=== PATIENT | male | born 2000 | race Caucasian/White ===

== ENCOUNTER 2024-02-12 14:35 | Emergency (ER) | payer OTHER, SELFPAY ==
[2024-02-12 14:39] VITALS: BP 132/96; BMI 25.1
[2024-02-12 15:05] LABS: % Basophils 0.4 % (0-2); % Eosinophils 0.4 % (0-6); % Immature Granulocytes 0.3 % (0-0.5); % Lymphocytes 14.7 % (20.5-51.1); % Monocytes 5.6 % (1.7-9.3); % Neutrophils 78.6 % (42.2-75.2); Absolute Lymphocytes 1.2 10^3/uL (1.2-3.4); Absolute Monocytes 0.4 10^3/uL (0.1-0.6); Absolute Neutrophils 6.2 10^3/uL (1.4-6.5); Hematocrit 42.8 % (39.0-52.0); Hemoglobin 15.5 g/dL (13.0-18.0); Mean Corp Hgb Conc. 36.2 g/dL (33.0-37.0); Mean Corpuscular Hgb 31.4 pg (27.0-31.0); Mean Corpuscular Volume 86.6 fL (80.0-94.0); Mean Platelet Volume 9.6 fL (7.4-10.4); Nucleated Red Blood Cells % 0 % (-); Platelet Count 176 10^3/uL (130-400); Red Blood Cell Count 4.94 10^6/uL (4.70-6.10); Red Cell Dist. Width 11.6 % (11.5-14.5); White Blood Cell Count 7.9 10^3/uL (4.8-10.8)
[2024-02-12 15:10] LABS: INR 1.11; PT 14.1 Sec (11.4-14.6)
[2024-02-12 15:15] LABS: ALT (SGPT) 18 U/L (0-50); AST (SGOT) 24 U/L (17-59); Albumin 4.9 g/dl (3.5-5.0); Alkaline Phosphatase 57 U/L (38-126); Blood Urea Nitrogen 17 mg/dl (9-20); Calcium 9.8 mg/dl (8.4-10.2); Carbon Dioxide 26 mmol/L (22-30); Chloride 103 mmol/L (98-107); Estimated Creatinine Clearance > 125 ml/min; Glucose 99 mg/dl (70-99); Potassium 3.9 mmol/L (3.5-5.1); Sodium 137 mmol/L (135-145); Total Bilirubin 0.9 mg/dl (0.2-1.3); Total Protein 7.3 g/dl (6.3-8.2); eGFR > 60.00
[2024-02-12 15:27] LABS: Troponin I < 0.012 ng/ml
[2024-02-12 15:30] VITALS: BP 121/90
--- NOTE | 2024-02-12 16:03 | ED.GENMED ---
History of Present Illness
General
Chief Complaint: Cardiac Symptoms
Source: patient
Exam Limitations: none
Time Seen by Provider: 02/12/24 15:48
Travel History
Have you had any contact with someone who has COVID-19?: No
Do you have any symptoms of coronavirus? Fever > 100 degrees, chills, cough, shortness of breath, sore throat, loss of taste or smell, muscle aches, or headache?: No
History of Present Illness
History of Present Illness:
24-year-old male otherwise healthy presents complaining of a weeks worth of occasional palpitations and shortness of breath that started after snorting cocaine 1 week ago. Since snorting the cocaine 1 week ago he has not used again. Does admit to
drinking some alcohol and caffeine between now and then. Currently he states he has no palpitations or shortness of breath he has not had any 2 days but wanted to get checked. No recent travel or surgery. No other complaints at this time
Past History
Past History
ED Past Medical History: Other (bipolar, anxiety); Negative Asthma, HTN, Hypercholesterolemia or NIDDM
ED Past Surgical History: None
Social History
Tobacco: Smoker
Alcohol: Occasional
Drug: None
Personal: Single
Living: with roommate
Phy Exam
Physical Exam
Physical Exam:
General: Well-appearing male no acute respiratory distress
HEENT: Normocephalic atraumatic
Heart: Regular rate and rhythm no murmurs
Lungs: Clear no wheeze or rales
Extremities: No cyanosis or edema
Abdomen soft nontender nondistended no guarding or rebound
Course
Orders/Labs/Results
Orders:
Orders
02/12/24 14:38
EKG [Electrocardiogram (*1)] Urgent
Reason for Study: Tachycardia
EKG- Treatment ONCE
02/12/24 14:54
Complete Blood Count/With Diff Urgent
Comprehensive Metabolic Panel Urgent
Prothrombin Time Urgent
Troponin I Urgent
Abnormal Lab Results
02/12/24
14:54
MCH 31.4 H pg
(27.0-31.0)
Neutrophils % 78.6 H %
(42.2-75.2)
Lymphocytes % 14.7 L %
(20.5-51.1)
02/12/24 14:54
02/12/24 14:54
Vital Signs
Initial and Last Documented VS:
Initial Vital Signs
Temp Pulse Resp BP Pulse Ox
98.6 F 122 18 132/96 98
02/12/24 14:39 02/12/24 14:39 02/12/24 14:39 02/12/24 14:39 02/12/24 14:39
Last Documented Vital Signs
Temp Pulse Resp BP Pulse Ox
98.6 F 80 22 121/90 98
02/12/24 14:39 02/12/24 16:30 02/12/24 16:30 02/12/24 15:30 02/12/24 14:39
MDM/Problems Addressed
Differential Diagnosis Includes:
Patient with palpitations shortness of breath since using cocaine 1 week ago. He has not had any symptoms in 2 days. EKG shows sinus tachycardia with a rate of 104. When I was in the room he had a heart rate in the 90s on the monitor. No
arrhythmias. Troponin is undetectable. Electrolytes within normal limits. Suspect palpitations may be related to substance abuse. No recent travel or risk factors for PE.
*Critical Care Note
Total Time (30-74mins, 75-104mins- exclusive of procedures): Not Applicable
Update Note
Update Note:
Labs reviewed patient does not have any arrhythmias on monitor. He is resting comfortably. Symptoms been going on for a week. Do not suspect any intermittent cardiac or pulmonary issues. Stable for discharge. Recommended refraining from cocaine
use
ED Attending Note
-
Portions of this chart may have been created with voice recognition software.� Occasional wrong word or��sound alike� substitutions may have occurred due to the inherent limitations of voice recognition software.
Discharge Plan
Departure
Patient Disposition: Home (Routine Discharge)
Date of Disposition: 02/12/24
Time of Disposition: 16:43
Patient with high blood pressure during this ER visit?: No
Discharge Problem:
palpitations, Substance abuse
Instructions: Palpitations
Prescriptions:
No Action
cephalexin 25 MG/ML suspension for reconstitution
125 mg PO QID Qty: 300 0RF
Rx Instructions:
250 qid x 7 days
oxycodone 5 mg tablet
5 mg PO Q4H PRN (Reason: Pain) Qty: 14 0RF
Referrals:
Johnathan Akhtar MD [Family Provider] -
Activity Restrictions/Additional Instructions:
Stay hydrated. Return for worsening symptoms. Follow-up with family doctor. Refrain from cocaine use
Interventions
Interventions:
*Risk Screen - Suicide Last Done: 02/12/24 14:39
*Neglect/Abuse Screening Last Done: 02/12/24 14:39
ED- Fall Risk Assessment Last Done: 02/12/24 14:39
Discharge Date and Time
Print Language: [place]ET[place]ESE
== END 2024-02-12 17:20 | disposition home or self-care (01) ==
LOC: EMR 14:35
PROVIDERS: Emergency Medicine; EMERGENCY PHYSICIAN Emergency Medicine; FAMILY PHYSICIAN Family Medicine
DX: R00.2 Palpitations (principal); R06.02 Shortness of breath; R00.0 Tachycardia, unspecified; F14.10 Cocaine abuse, uncomplicated; F31.9 Bipolar disorder, unspecified; F41.9 Anxiety disorder, unspecified; F17.200 Nicotine dependence, unspecified, uncomplicated; Z88.1 Allergy status to other antibiotic agents
CPT/HCPCS: 99283; 80053; 84484; 85025; 85610; 93005

== ENCOUNTER 2024-04-27 17:16 | Emergency (ER) | payer OTHER, SELFPAY ==
[2024-04-27 17:22] VITALS: BP 152/82
--- NOTE | 2024-04-27 18:47 | ED.GENMED ---
History of Present Illness
General
Chief Complaint: Chest Pain
Source: patient
Exam Limitations: none
Time Seen by Provider: 04/27/24 18:15
History of Present Illness
History of Present Illness:
This is a 24 year old male that comes in with c/o palpitations. States that he was here 3 months ago as he had done Cocaine. States that a week after this he was ok and then he started with palpitations. States that he feels uneasy and when he lays
down at night he feels this funny feeling in his chest. States that his chest pain has increased the past few days. States that he has felt SOB had diarrhea and urinary burning. Denies any fever, chills, abd pain, nausea, vomiting, headache,
dizziness.
Past History
Past History
ED Past Medical History: Psychiatric (Anxiety, Bipolar, Depression. Schizophrenia, ) and Other (bipolar, anxiety); Negative Asthma, HTN, Hypercholesterolemia or NIDDM
ED Past Surgical History: None
Social History
Tobacco: Smoker ( and Vaps)
Alcohol: Occasional
Drug: None
Personal: Single
Living: with roommate
Review of Systems
Review of Systems
All Other Systems: ROS reviewed and negative except as documented in HPI and ROS
Constitutional: Reports no symptoms; Denies fever or chills
EENT: Reports no symptoms
Respiratory: Reports trouble breathing
Cardiac: Reports chest pain and palpitations
ABD/GI: Reports diarrhea; Denies abdominal pain, nausea or vomiting
: Reports no symptoms; Denies dysuria, frequency or urgency
Musculoskeletal: Reports no symptoms
Skin: Reports no symptoms
Neurological: Reports no symptoms; Denies dizzy or headache
Psychiatric: Reports no symptoms
Phy Exam
General Physical Exam
General Presentation: well appearing and no apparent distress
General age: appears stated age
General Skin: warm and dry
General Habitus: normal
General Mental: alert
General Hydration: dry mucous membranes
ENT Exam
ENT Exam: TM's normal, pharynx normal and neck supple
Eye Exam
Eye Exam: EOMI
Cardiovascular Exam
Cardiovascular Exam: regular rate/rhythm, no edema, no murmur and normal peripheral pulses
Pulmonary Exam
Pulmonary Exam: lungs clear, no respiratory distress, no rales, chest non tender, no crackles, no rhonchi, no wheezing and no cough
Gastrointestinal Exam
Gastrointestinal Exam: normal bowel sounds, non tender, soft, no organomegaly, no pulsatile mass and non distended
Musculoskeletal Exam
Musculoskeletal Exam: full ROM and no edema
Skin Exam
Skin Exam: normal color, warm/dry, no rash and no petechia
Scores
Heart Score for Chest Pain Patients
STEMI patient?: No
History: Slightly or Non-Suspicious
ECG: Normal
Age: </= 45 years
Risk Factors: No Risk Factors
Troponin: </= Normal Limit
Heart Score for Chest Pain Patients: 0
Heart Score Risk: 2.5% MACE over next 6 weeks
Course
Orders/Labs/Results
Orders:
Orders
04/27/24 17:17
EKG [Electrocardiogram (*1)] Urgent
Reason for Study: Chest Pain
04/27/24 17:18
EKG- Treatment ONCE
04/27/24 18:40
CR Chest - 2 Views Urgent
Comment:
Reason For Exam: Chest pain, SOB
04/27/24 19:54
Complete Blood Count/With Diff Urgent
Comprehensive Metabolic Panel Urgent
D-Dimer Urgent
Troponin I Urgent
04/27/24 20:46
Fentanyl, Urine Urgent
Urinalysis Reflex To Culture Urgent
Date Specimen was Collected: 04/27/24
Time Specimen was Collected: 20:30
Urine Drug Abuse Screen Urgent
Date Specimen was Collected: 04/27/24
Time Specimen was Collected: 20:30
Abnormal Lab Results
04/27/24 04/27/24
19:54 20:46
MCH 31.2 H pg
(27.0-31.0)
MCHC 37.5 H g/dL
(33.0-37.0)
Lymphocytes % 18.0 L %
(20.5-51.1)
Albumin 5.1 H g/dl
(3.5-5.0)
U Benzodiazepines Scrn Positive H
(Negative)
04/27/24 19:54
04/27/24 19:54
Labs unremarkable. Troponin 0.015, D-dimer 0.27, Urine negative for infection. Urine Drug Benzodiazepines
Vital Signs
Initial and Last Documented VS:
Initial Vital Signs
Temp Pulse BP Pulse Ox
98.5 F 104 152/82 96
04/27/24 17:22 04/27/24 17:22 04/27/24 17:22 04/27/24 17:22
Last Documented Vital Signs
Temp Pulse Resp BP Pulse Ox
98.5 F 104 18 152/82 96
04/27/24 17:22 04/27/24 19:15 04/27/24 19:15 04/27/24 17:22 04/27/24 17:22
MDM/Problems Addressed
Differential Diagnosis Includes:
Anxiety,
MDM/Problems Addressed:
This is a 24 year old male that comes in with c/o palpitations and chest pain. States that he is SOB and feels that he has a blood clot.
Will check labs, Chest x-ray and get urine.
Back into see patient. Explained that his blood work is normal along with his chest x-ray. Feels that this is all related to his anxiety. Patient to follow up with the family doctor. return with any concerns.
Chronic conditions affecting care: Psychiatric illness
Acute Exacerbation and/or Progression of Chronic Illness: Psychiatric illness
*Pulse Oximetry
Patient hypoxic: no
*EKG
Interpreted by ED Provider?: Yes
Heart Rate: 93
Rate: normal
Rhythm: sinus
[place]: left axis deviation
Interval: normal interval
QRS Pattern: normal QRS
Ischemia: no ischemia
*Lift Builder Whole Interpretation
Rate: normal
Heart Rate: 95
Rhythm: sinus
*Critical Care Note
Total Time (30-74mins, 75-104mins- exclusive of procedures): Not Applicable
ED Attending Note
-
Portions of this chart may have been created with voice recognition software.� Occasional wrong word or��sound alike� substitutions may have occurred due to the inherent limitations of voice recognition software.
Discharge Plan
Departure
Patient Disposition: Home (Routine Discharge)
Date of Disposition: 04/27/24
Time of Disposition: 21:19
Patient with high blood pressure during this ER visit?: Yes
Condition: Good
Covid-19: Not Applicable
Discharge Problem:
Anxiety
Instructions: Generalized Anxiety Disorder (DC), BLOOD PRESSURE
Prescriptions:
No Action
cephalexin 25 MG/ML suspension for reconstitution
125 mg PO QID Qty: 300 0RF
Rx Instructions:
250 qid x 7 days
oxycodone 5 mg tablet
5 mg PO Q4H PRN (Reason: Pain) Qty: 14 0RF
Referrals:
Johnathan Akhtar MD [Family Provider] - As needed
Activity Restrictions/Additional Instructions:
As discussed,your blood work is normal along with your chest X-ray. This is most likely due to your anxiety. Please follow up with your family doctor or your Psychiatrist for further evaluation. IF YOU HAVE ANY OTHER CONCERNS PLEASE RETURN TO THE
EMERGENCY ROOM.
Interventions
Interventions:
*Risk Screen - Suicide Last Done: 04/27/24 17:25
*General Assessment Last Done: 04/27/24 17:25
*Neglect/Abuse Screening Last Done: 04/27/24 17:25
ED- Cardiac Assessment Last Done: 04/27/24 20:37
Discharge Date and Time
Print Language: [place]OREAN
[2024-04-27 20:02] LABS: % Basophils 0.5 % (0-2); % Eosinophils 0.6 % (0-6); % Immature Granulocytes 0.3 % (0-0.5); % Monocytes 7.6 % (1.7-9.3); Absolute Eosinophils 0.1 10^3/uL (0-0.7); Absolute Lymphocytes 1.4 10^3/uL (1.2-3.4); Absolute Monocytes 0.6 10^3/uL (0.1-0.6); Absolute Neutrophils 5.7 10^3/uL (1.4-6.5); Hematocrit 42.1 % (39.0-52.0); Hemoglobin 15.8 g/dL (13.0-18.0); Mean Corp Hgb Conc. 37.5 g/dL (33.0-37.0); Mean Corpuscular Hgb 31.2 pg (27.0-31.0); Mean Corpuscular Volume 83.2 fL (80.0-94.0); Mean Platelet Volume 9.8 fL (7.4-10.4); Nucleated Red Blood Cells % 0 % (-); Platelet Count 207 10^3/uL (130-400); Red Blood Cell Count 5.06 10^6/uL (4.70-6.10); Red Cell Dist. Width 11.9 % (11.5-14.5); White Blood Cell Count 7.8 10^3/uL (4.8-10.8)
[2024-04-27 20:15] LABS: ALT (SGPT) 18 U/L (0-50); AST (SGOT) 24 U/L (17-59); Albumin 5.1 g/dl (3.5-5.0); Alkaline Phosphatase 80 U/L (38-126); Blood Urea Nitrogen 11 mg/dl (9-20); Calcium 9.9 mg/dl (8.4-10.2); Carbon Dioxide 24 mmol/L (22-30); Chloride 100 mmol/L (98-107); Glucose 94 mg/dl (70-99); Potassium 3.8 mmol/L (3.5-5.1); Sodium 135 mmol/L (135-145); Total Bilirubin 0.9 mg/dl (0.2-1.3); Total Protein 7.1 g/dl (6.3-8.2); eGFR > 60.00
[2024-04-27 20:20] LABS: D-Dimer < 0.27 ug/mlFEU (0.00-0.50)
[2024-04-27 20:27] LABS: Troponin I 0.015 ng/ml
[2024-04-27 21:03] LABS: Urine Albumin Negative (Neg - Trace); Urine Bilirubin Negative (Negative); Urine Character Clear (Clear); Urine Color Yellow; Urine Glucose Negative (Negative); Urine Ketone Negative (Negative); Urine Leukocyte Negative (Negative); Urine Nitrite Negative (Negative); Urine Occult Blood Negative (Negative); Urine Urobilinogen Negative (Neg - 1+)
[2024-04-27 21:14] LABS: Amphetamines Negative (Negative); Barbiturates Negative (Negative); Benzodiazepines Positive (Negative); Buprenorphine Negative (Negative); Cocaine Negative (Negative); Marijuana Negative (Negative); Methadone Negative (Negative); Methamphetamines Negative (Negative); Opiates Negative (Negative); Phencyclidine Negative (Negative); Tricyclic Antidepressants Negative (Negative)
[2024-04-27 21:18] VITALS: BP 136/76
[2024-04-27 21:41] LABS: Fentanyl, Urine Negative (Negative)
== END 2024-04-27 21:23 | disposition home or self-care (01) ==
LOC: EMR 17:16
PROVIDERS: Clinical Nurse Specialist Family Health; EMERGENCY PHYSICIAN Emergency Medicine; FAMILY PHYSICIAN Family Medicine
DX: F41.9 Anxiety disorder, unspecified (principal); F17.290 Nicotine dependence, other tobacco product, uncomplicated; R03.0 Elevated blood-pressure reading, without diagnosis of hypertension; F20.9 Schizophrenia, unspecified; F31.9 Bipolar disorder, unspecified
CPT/HCPCS: 99285; 71046; 80053; 80306; 80307; 81003; 84484; 85025; 85379; 93005

== ENCOUNTER 2025-06-04 17:33 | Emergency (ER) | payer OTHER, SELFPAY ==
[2025-06-04 17:39] VITALS: BP 139/92
[2025-06-04 17:42] VITALS: BMI 26.1
[2025-06-04 17:47] LABS: Hematocrit 45.4 % (39.0-52.0); Hemoglobin 16.4 g/dL (13.0-18.0); Mean Corp Hgb Conc. 36.1 g/dL (33.0-37.0); Mean Corpuscular Volume 83.6 fL (80.0-94.0); Nucleated Red Blood Cells % 0 % (-); Platelet Count 233 10^3/uL (130-400); Red Cell Dist. Width 12.8 % (11.5-14.5)
--- NOTE | 2025-06-04 18:05 | ED.GENMED ---
History of Present Illness
General
Chief Complaint: Overdose Unintentional
Time Seen by Provider: 06/04/25 18:04
History of Present Illness
History of Present Illness:
FOCUSED PAST MEDICAL HISTORY
- Bipolar, schizophrenia, substance abuse
REVIEW OF OLD RECORDS
- The patient was seen here with anxiety in April 2024 and substance abuse in February 2024
Note:
CHIEF COMPLAINT(S)
Cocaine use and psychiatric evaluation.
HISTORY OF PRESENT ILLNESS
The patient is a 25-year-old male who presented for evaluation following cocaine use. The patient admits to using cocaine earlier in the day, approximately three hours prior to the current evaluation, and reported usage on the previous day as well.
Cocaine use has been sporadic, with periods of abstinence and increased frequency up to two times a week. When asked about the reason for cocaine use, the patient mentioned experiencing 'a lot of happiness' and using it to cope with 'bad depression.'
The patient has a reported history of social anxiety disorder and bipolar disorder, though no definitive diagnosis has been established. Currently, he is undergoing treatment for these conditions, but he has not taken his antipsychotic medications
today. The patient usually takes his medication at dinner, along with food. A family member confirmed that he typically adheres to this regimen.
Further, the patient reported feelings of unease and concern about his heart rate being 'pretty fast.' Recent episodes of bizarre behavior, as noted by family, have been linked to the patients drug use. Concerns about the interplay between
psychiatric symptoms and substance use have complicated his evaluation, and a family member expressed the belief that mental health issues precede drug use.
PSYCHIATRIC HISTORY
The patient has been treated for social anxiety disorder and bipolar disorder. Current medications include Paliperidone 112.5 mg and venlafaxine. The patient�s private psychiatrist has trialed multiple medications over the past four years. According
to a family member, a mental health crisis was first identified in 2020 when the patient exhibited concerning behavior while at school.
ADDITIONAL HISTORY OBTAINED FROM SOURCES OTHER THAN THE PATIENT
According to a family member, the patient has shown recent behavior changes, including restlessness and agitation, prompting a mobile crisis unit evaluation. The family has expressed that the mental health issues were evident prior to cocaine use.
CHRONIC MEDICAL CONDITIONS SIGNIFICANTLY AFFECTING CARE
- Social anxiety disorder
- Bipolar disorder
SOCIAL DETERMINANTS AFFECTING HEALTH
The patient reported limited alcohol use, consuming about one drink per week, and denied using any other illicit substances besides cocaine. The family has noted financial and logistical challenges in obtaining consistent psychiatric support.
PHYSICAL EXAM
General: Alert, no acute distress. Appears comfortable
Skin: Warm, dry.
Head: Normocephalic, atraumatic.
Neck: Supple, trachea midline.
Eye Ears, Nose, Mouth, and Throat: Oral mucosa moist.
Cardiovascular: Normal peripheral perfusion, No edema. Tachycardic
Respiratory: Respirations are non-labored.
Gastrointestinal: Abdomen nondistended
Back: Normal range of motion, Normal alignment.
Musculoskeletal: Normal range of motion, normal strength.
Neurological: Awake and alert, moving all extremities equally
Psychiatric: The patient has somewhat of a bizarre affect, somewhat of a limited historian
PROBLEM LIST
Acute:
- Cocaine use
- Tachycardia
Chronic:
- Social anxiety disorder
- Bipolar disorder
PLAN
- Considered having him take his usual paliperidone 112.5 mg however mother states this has been an effective
- Valium 10 mg IV now
- Monitor cardiovascular status, particularly heart rate, due to cocaine use.
- Discuss potential changes to psychiatric medication with patient�s psychiatrist given current inefficacy reported by the patient and family.
- Crisis evaluation
DIFFERENTIAL DIAGNOSIS
The Differential Diagnosis includes, in no particular order and is not limited to:
- Acute cocaine intoxication
- Substance-induced mood disorder
- Bipolar disorder
- Anxiety disorder
- Tachycardia secondary to stimulant use
- Panic disorder
- Depression
- Substance abuse disorder
- Schizophreniform disorder
- Adjustment disorder
EKG
- Sinus 120, rightward axis deviation, nonspecific ST abnormality
LABS
- UDS positive for cocaine, negative alcohol, chemistries relatively unremarkable, white count 16.9 that I suspect is reactive related to recent cocaine use
UPDATE
-SUMMARY OF ENCOUNTER
The patient, a 25-year-old male, presented to the emergency department with a heart rate elevated due to cocaine use earlier in the day. The patient reported feeling 'really good,' attributing it to medication given to counteract cocaines effects.
The family initiated a petition for an involuntary hold, which was denied, leaving the hospital unable to hold the patient involuntarily. Despite improvement, the patient was advised not to drive and to secure transportation home due to safety
concerns.
DISPOSITION
Discharge
ASSESSMENT
Cocaine use with tachycardia managed with medication to reduce heart rate. Cognitive function appeared adequate by the end of the visit, and no further mental health interventions were deemed necessary at this time.
EMERGENCY TREATMENTS ADMINISTERED
Medication administered to counteract cocaine effects and reduce tachycardia.
PLAN
Advise the patient to find someone to drive him home due to unresolved risk factors related to earlier cocaine use and its cardiovascular implications. Reiterate safety concerns and instruct on securing reliable transportation before leaving the
facility.
MEDICATION RECONCILIATION
Medication administered to manage elevated heart rate secondary to cocaine use was the sole intervention in the ER setting.
MEDICAL DECISION MAKING
1. Number and Complexity of Problems Addressed:
Chronic conditions affecting care include social anxiety disorder and bipolar disorder. Differential diagnosis includes acute cocaine intoxication, substance-induced mood disorder, bipolar disorder, anxiety disorder, tachycardia secondary to
stimulant use, panic disorder, depression, substance abuse disorder, schizophreniform disorder, and adjustment disorder.
2. Data:
Category 1: The patient was monitored for tachycardia secondary to cocaine use, but no labs or imaging were recorded during this transcript.
Category 2: Information was corroborated by a family member regarding the denial of a 302 hold; however, further independent historical data were not detailed in the transcript.
Category 3: There was no discussion with other healthcare professionals documented.
3. Risk: Medication for tachycardia was administered, indicating management of acute toxicity. Social determinants included transportation challenges, impacting discharge safety.
Heart rate improved to about 100 prior to discharge
302 denied by the delegate
The patient later asked for a CAT scan of his chest 'because I vape a lot' however his lungs were clear and his oxygen sats are normal
DIAGNOSIS
F14.10 Cocaine use, unspecified with complications including acute tachycardia.
Past History
Past History
ED Past Medical History: Psychiatric (Anxiety, Bipolar, Depression. Schizophrenia, ) and Other (bipolar, anxiety); Negative Asthma, HTN, Hypercholesterolemia or NIDDM
ED Past Surgical History: None
Social History
Tobacco: Smoker ( and Vaps)
Alcohol: Occasional
Drug: None
Personal: Single
Living: with roommate
Phy Exam
Physical Exam
Physical Exam:
See HPI
Course
Orders/Labs/Results
Orders:
Orders
06/04/25 17:37
EKG [Electrocardiogram (*1)] Urgent
Reason for Study: Tachycardia
EKG- Treatment ONCE
06/04/25 17:38
Alcohol Urgent
Complete Blood Count/With Diff Urgent
Comprehensive Metabolic Panel Urgent
Creatine Phosphokinase Urgent
Comment: ADDON
Fentanyl, Urine Urgent
Urine Drug Abuse Screen Urgent
Date Specimen was Collected: 06/04/25
Time Specimen was Collected: 17:37
06/04/25 18:04
Add On- LAB Urgent
Tests Added?: CK
0.9% Sodium Chloride 1000 ml [Nss] 1,000 ml IV BOLUS
diazePAM [Valium Injection] 10 mg IV NOW STA
06/04/25 18:21
Nicotine [Nicoderm Transdermal] 21 mg TRANSDERM NOW STA
06/04/25 19:06
Crisis Consult Urgent
Reason for Consult: behavioral health eval; cocaine use
Abnormal Lab Results
06/04/25
17:38
WBC 16.9 H 10^3/uL
(4.8-10.8)
Abs Immat Gran (auto) 0.1 H 10^3/uL
(0-0.05)
Absolute Neuts (auto) 14.2 H 10^3/uL
(1.4-6.5)
Absolute Lymphs (auto) 1.0 L 10^3/uL
(1.2-3.4)
Absolute Monos (auto) 1.4 H 10^3/uL
(0.1-0.6)
Neutrophils % 84.4 H %
(42.2-75.2)
Lymphocytes % 6.0 L %
(20.5-51.1)
BUN 8 L mg/dl
(9-20)
Glucose 100 H mg/dl
(70-99)
Calcium 10.5 H mg/dl
(8.4-10.2)
Total Bilirubin 1.4 H mg/dl
(0.2-1.3)
Creatine Kinase 352 H U/L
(55-170)
Albumin 5.2 H g/dl
(3.5-5.0)
Urine Cocaine Screen Positive H
(Negative)
06/04/25 17:38
06/04/25 17:38
Vital Signs
Initial and Last Documented VS:
Initial Vital Signs
Pulse Resp BP Pulse Ox
122 22 139/92 98
06/04/25 17:39 06/04/25 17:39 06/04/25 17:39 06/04/25 17:39
Last Documented Vital Signs
Temp Pulse Resp BP Pulse Ox
36.8 C 100 26 117/55 96
06/04/25 17:42 06/04/25 20:15 06/04/25 20:15 06/04/25 20:00 06/04/25 20:15
*Pulse Oximetry
SaO2: 97
Oxygen Mode of Delivery: Room air
Patient hypoxic: no
*Critical Care Note
Total Time (30-74mins, 75-104mins- exclusive of procedures): Not Applicable
ED Attending Note
-
Portions of this chart may have been created with voice recognition software.� Occasional wrong word or��sound alike� substitutions may have occurred due to the inherent limitations of voice recognition software.
Discharge Plan
Departure
Patient Disposition: Home (Routine Discharge)
Date of Disposition: 06/04/25
Time of Disposition: 19:28
Patient with high blood pressure during this ER visit?: Yes
Discharge Problem:
Cocaine use
Instructions: Substance use disorder
Prescriptions:
No Action
cephalexin 25 MG/ML suspension for reconstitution
125 mg PO QID Qty: 300 0RF
Rx Instructions:
250 qid x 7 days
oxycodone 5 mg tablet
5 mg PO Q4H PRN (Reason: Pain) Qty: 14 0RF
Referrals:
Johnathan Akhtar MD [Family Provider, Family Practice]
Activity Restrictions/Additional Instructions:
I strongly recommend stopping all cocaine use. Your heart rate was fast when you first came in we gave you medicine to counteract those effects. Because of this medicine that we gave you, you must not drive tonight and you should find a ride home.
We did have crisis evaluate you as well but they could not place you at a facility as the '302 was denied'. Return here if worse or other concerns.
Interventions
Interventions:
*Risk Screen - Suicide Last Done: 06/04/25 17:41
*General Assessment Last Done: 06/04/25 17:41
*Neglect/Abuse Screening Last Done: 06/04/25 17:41
*ED- Fall Risk Assessment Last Done: 06/04/25 17:41
*ED COVID-19 Vaccine History Last Done: 06/04/25 17:41
*Nursing Disposition Last Done: 06/04/25 20:39
ED- Cardiac Assessment Last Done: 06/04/25 17:43
ED- Neurological Assessment Last Done: 06/04/25 17:43
ED-Psychological Assessment Last Done: 06/04/25 17:43
ED- Pulmonary Assessment Last Done: 06/04/25 17:43
Discharge Date and Time
Print Language: SPANISH
[2025-06-04 18:08] LABS: ALT (SGPT) 23 U/L (0-50); AST (SGOT) 31 U/L (17-59); Albumin 5.2 g/dl (3.5-5.0); Alkaline Phosphatase 86 U/L (38-126); Blood Urea Nitrogen 8 mg/dl (9-20); Calcium 10.5 mg/dl (8.4-10.2); Carbon Dioxide 26 mmol/L (22-30); Chloride 99 mmol/L (98-107); Estimated Creatinine Clearance > 125 ml/min; Glucose 100 mg/dl (70-99); Potassium 3.6 mmol/L (3.5-5.1); Sodium 137 mmol/L (135-145); Total Protein 7.9 g/dl (6.3-8.2); eGFR > 60.00
[2025-06-04] MEDS: NSS 1000 IV (18:24)
[2025-06-04] MEDS: VALIUM INJECTION 10 MG IV (18:24)
[2025-06-04] MEDS: NICODERM TRANSDERMAL 21 MG TRANSDERM (18:24)
[2025-06-04 19:00] VITALS: BP 132/79
[2025-06-04 20:00] VITALS: BP 117/55
== END 2025-06-04 20:40 | disposition home or self-care (01) ==
LOC: EMR 17:33
PROVIDERS: EMERGENCY PHYSICIAN Emergency Medicine; FAMILY PHYSICIAN Family Medicine
DX: F14.10 Cocaine abuse, uncomplicated (principal); F31.9 Bipolar disorder, unspecified; F40.10 Social phobia, unspecified; F20.9 Schizophrenia, unspecified; F17.290 Nicotine dependence, other tobacco product, uncomplicated
CPT/HCPCS: 99284; 96374; 96361; 80053; 80306; 80307; 82077; 82550; 85025; 93005

== ENCOUNTER 2025-06-11 12:26 | Emergency (ER) | payer OTHER, SELFPAY ==
[2025-06-11 12:38] VITALS: BP 140/87
[2025-06-11 13:00] VITALS: BP 146/82
[2025-06-11 14:00] VITALS: BP 109/58
--- NOTE | 2025-06-11 14:29 | ED.GENMED ---
History of Present Illness
General
Chief Complaint: Crisis Evaluation
Source: patient
Exam Limitations: none
Time Seen by Provider: 06/11/25 12:47
History of Present Illness
History of Present Illness:
Patient presents with anxiety. Cocaine use he states once per week. Last use last evening. Patient wants to be admitted psychiatrically for further care and help. He actually denies depression or suicidal ideation. Parents apparently petition
on a psychiatric committal. He apparently may have a bed available at [facility] already. He denies acute complaints medically
Past History
Past History
ED Past Medical History: Psychiatric (Anxiety, Bipolar, Depression. Schizophrenia, ) and Other (bipolar, anxiety); Negative Asthma, HTN, Hypercholesterolemia or NIDDM
ED Past Surgical History: None
Social History
Tobacco: Smoker ( and Vaps)
Alcohol: Occasional
Drug: Cocaine
Personal: Single
Living: with family
Employment: Not employed
Review of Systems
Review of Systems
All Other Systems: Not applicable
Respiratory: Reports no symptoms
Cardiac: Reports no symptoms
ABD/GI: Reports no symptoms
Phy Exam
Physical Exam
Physical Exam:
GENERAL: Alert and oriented in no apparent distress
EYE: Orbits normal.
NECK: Supple, no significant adenopathy.
ENT: Pharynx without erythema
CARDIAC: Regular rate and rhythm without any obvious murmurs.
LUNGS: Clear breath sounds,normal
ABDOMEN: Soft, without focal tenderness or distention
NEUROLOGICAL: Alert and oriented , grossly non-focal
SKIN: Warm and dry, no rash or lesion, no discoloration, skin intact.
MUSCULOSKELETAL: No edema,no deformity.Good color
PSYCH: Cooperative. Somewhat rambling speech
Course
Orders/Labs/Results
Orders:
Orders
06/11/25 12:47
Crisis Consult Urgent
Reason for Consult: depression/anxiety ? bed at [facility]?
06/11/25 13:43
Fentanyl, Urine Urgent
Urine Drug Abuse Screen Urgent
Date Specimen was Collected: 06/11/25
Time Specimen was Collected: 13:41
Abnormal Lab Results
06/11/25
13:43
U Benzodiazepines Scrn Positive H
(Negative)
Urine Cocaine Screen Positive H
(Negative)
Vital Signs
Initial and Last Documented VS:
Initial Vital Signs
Temp Pulse Resp BP Pulse Ox
98 F 100 16 140/87 98
06/11/25 12:38 06/11/25 12:38 06/11/25 12:38 06/11/25 12:38 06/11/25 12:38
Last Documented Vital Signs
Temp Pulse Resp BP Pulse Ox
98 F 86 16 126/85 94
06/11/25 12:38 06/11/25 15:00 06/11/25 16:02 06/11/25 15:00 06/11/25 15:00
MDM/Problems Addressed
Differential Diagnosis Includes:
Patient medically stable and nontoxic. Not describing acute suicidal or homicidal ideation. Does not appear to be an immediate danger to himself. Requesting admission for depression and drug issues. Awaiting crisis involvement.
*Pulse Oximetry
SaO2: 96
Oxygen Mode of Delivery: Room air
Patient hypoxic: no
*Critical Care Note
Total Time (30-74mins, 75-104mins- exclusive of procedures): Not Applicable
Update Note
Update Note:
Patient apparently excepted at [facility]
Psychiatry has seen the patient. He is going in is a 201 with a 302 backup. Will have one-to-one observation
ED Attending Note
-
Portions of this chart may have been created with voice recognition software.� Occasional wrong word or��sound alike� substitutions may have occurred due to the inherent limitations of voice recognition software.
Discharge Plan
Departure
Patient Disposition: Psych Facility
Date of Disposition: 06/11/25
Time of Disposition: 15:26
Discharge Problem:
Anxiety/cocaine use, History of schizophrenia/bipolar
Prescriptions:
No Action
cephalexin 25 MG/ML suspension for reconstitution
125 mg PO QID Qty: 300 0RF
Rx Instructions:
250 qid x 7 days
oxycodone 5 mg tablet
5 mg PO Q4H PRN (Reason: Pain) Qty: 14 0RF
Referrals:
UNKNOWN,NO INTERVIEW [Family Provider]
Interventions
Interventions:
*Risk Screen - Suicide Last Done: 06/11/25 12:41
*General Assessment Last Done: 06/11/25 12:41
*Neglect/Abuse Screening Last Done: 06/11/25 12:41
*ED- Fall Risk Assessment Last Done: 06/11/25 12:41
*ED COVID-19 Vaccine History Last Done: 06/11/25 12:41
*ED Influenza Vaccine History Last Done: 06/11/25 12:41
*Nursing Disposition Last Done: 06/11/25 18:15
ED-Psychological Assessment Last Done: 06/11/25 12:41
Discharge Date and Time
Discharge Date/Time: 06/11/25 18:15
Print Language: BENGALI
[2025-06-11 15:00] VITALS: BP 126/85
== END 2025-06-11 18:15 ==
LOC: EMR 12:26
PROVIDERS: EMERGENCY PHYSICIAN Emergency Medicine
DX: F41.9 Anxiety disorder, unspecified (principal); F14.90 Cocaine use, unspecified, uncomplicated; F20.9 Schizophrenia, unspecified; F31.9 Bipolar disorder, unspecified; F17.290 Nicotine dependence, other tobacco product, uncomplicated
CPT/HCPCS: 99285; 80306; 80307